=== PATIENT | male | born 1990 | race Two or more races ===

== ENCOUNTER 2017-05-29 16:02 | Emergency (ER) | payer SELFPAY ==
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
== END 2017-05-29 19:12 | disposition home or self-care (01) ==
LOC: MW.ED 16:02
DX: S20.419A Abrasion of unspecified back wall of thorax, initial encounter (principal); M25.511 Pain in right shoulder; H11.31 Conjunctival hemorrhage, right eye; F17.210 Nicotine dependence, cigarettes, uncomplicated; Y04.2XXA Assault by strike against or bumped into by another person, initial encounter
CPT/HCPCS: 73030-26-RT; 73030-RT; 99283